=== PATIENT | male | born 1990 | race Caucasian/White ===

== ENCOUNTER 2019-04-28 11:08 | Emergency (ER) | payer MEDICAID ==
[~2019-04-28] VITALS: Ht 175.3 cm; Wt 119.8 kg
[2019-04-28 11:29] VITALS: BP 154/100
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
--- NOTE | 2019-04-28 11:43 | NUR ---
Patient being evaluated by physician at bedside.
[2019-04-28] MEDS ORDERED: IBUPROFEN 800 MG TAB PO ONE (11:55)
--- NOTE | 2019-04-28 12:05 | NUR ---
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
--- NOTE | 2019-04-28 13:29 | NUR ---
RADIOLOGY ATY BEDSIDE TO [employer] ASSEMBLER PT FOR CT, TRANSFERRED BY WHEELCHAIR.
[2019-04-28 14:09] VITALS: BP 146/90
== END 2019-04-28 14:10 | disposition home or self-care (01) ==
LOC: MED 11:08
DX: S93.401A Sprain of unspecified ligament of right ankle, initial encounter (principal); S00.12XA Contusion of left eyelid and periocular area, initial encounter; S00.432A Contusion of left ear, initial encounter; S40.812A Abrasion of left upper arm, initial encounter; Y08.89XA Assault by other specified means, initial encounter; Y93.89 Activity, other specified; Y92.29 Other specified public building as the place of occurrence of the external cause; Y99.8 Other external cause status
CPT/HCPCS: 70450; 70486; 73610; 73630; 99284; Q0092